=== PATIENT | male | born 1965 | race African-American/Black ===

== ENCOUNTER 2020-07-12 15:40 | Inpatient (IN) | payer OTHER ==
[2020-07-12 20:03] VITALS: BMI 28.7
[2020-07-12] MEDS ORDERED: IBUPROFEN 400 MG TABLET (FP) PO PRN (22:12)
[2020-07-12] MEDS ORDERED: P-EPHED 60MG/TRIPROLIDI 2.5MG TABLET PO PRN (22:12)
[2020-07-12] MEDS ORDERED: NICOTINE POLACRILEX 2 MG GUM BC PRN (22:12)
[2020-07-12] MEDS ORDERED: LOPERAMIDE HCL 2 MG CAPSULE PO PRN (22:12)
[2020-07-12] MEDS ORDERED: guaiFENesin 200 MG/10 ML 10 ML UNIT-DOSE CUPS PO PRN (22:12)
[2020-07-12] MEDS ORDERED: MAG HYDROX/AL HYDROX/SIMETH 30 ML UNIT-DOSE CUP PO PRN (22:12)
[2020-07-12] MEDS ORDERED: MAGNESIUM HYDROX 2400MG/30ML ORAL SUSPENSION 30 ML CUP PO PRN (22:12)
[2020-07-12] MEDS ORDERED: MAGNESIUM CITRATE 300 ML BOTTLE PO PRN (22:12)
[2020-07-13] MEDS: MELATONIN 5 MG TABLETS PO SCH ×2 (01:10→21:15)
[2020-07-13] MEDS ORDERED: TUBERCULIN PPD 5 TU/0.1ML VIAL ID ONE (01:38)
[2020-07-13] MEDS: PRENATAL VITAMINS W/ FOLIC ACID TABLET (FP) PO SCH (11:03)
[2020-07-13] MEDS: ACETAMINOPHEN 325 MG TABLET (FP) PO PRN (11:03)
[2020-07-13 11:33] LABS: ALBUMIN 3.2 g/dl (3.4-5.0); CALCIUM 8.7 mg/dL (8.5-10.1); HEMATOCRIT 37.7 % (35.4-49); HEMOGLOBIN 12.3 GM/dL (11.7-16.9); MCH 28.1 pg (25.7-33.7); MCHC 32.6 g/dl (32.0-35.9); MEAN CELL VOLUME 86.4 fl (80-96); PLATELET COUNT 295 K/MM3 (134-434); RBC 4.37 M/mm3 (4.00-5.60); RDW 15.1 % (11.9-15.9)
[2020-07-13 11:38] LABS: BILIRUBIN,TOTAL 0.9 mg/dL (0.2-1); CREATININE 1.1 mg/dL (0.55-1.3); TOT PROT 6.7 g/dl (6.4-8.2)
[2020-07-13 12:32] LABS: HIV INTERPRETATION NEGATIVE (NEGATIVE)
[2020-07-13] MEDS: hydrOXYzine PAMOATE 25 MG CAPSULE (FP) PO PRN (21:15)
[2020-07-13] MEDS: THIAMINE HCL 100 MG TABLET (FP) PO SCH (21:15)
[2020-07-13] MEDS: METHYL SALICYLATE/MENTHOL OINT 30 GM TUBE TP SCH (21:59)
[2020-07-14] MEDS: METHYL SALICYLATE/MENTHOL OINT 30 GM TUBE TP SCH ×2 (10:55→21:09)
[2020-07-14] MEDS: LIDOCAINE 5% TOPICAL PATCH TP SCH (10:55)
[2020-07-14] MEDS: PRENATAL VITAMINS W/ FOLIC ACID TABLET (FP) PO SCH (10:56)
[2020-07-14] MEDS: ACETAMINOPHEN 325 MG TABLET (FP) PO PRN (10:56)
[2020-07-14] MEDS: THIAMINE HCL 100 MG TABLET (FP) PO SCH (21:08)
[2020-07-14] MEDS: MELATONIN 5 MG TABLETS PO SCH (21:08)
[2020-07-14] MEDS: METHOCARBAMOL 500 MG TABLET PO PRN (21:08)
[2020-07-14] MEDS: hydrOXYzine PAMOATE 25 MG CAPSULE (FP) PO PRN (21:08)
[2020-07-14] MEDS: LIDOCAINE PATCH REMOVAL MC SCH (21:09)
[2020-07-15] MEDS: LIDOCAINE 5% TOPICAL PATCH TP SCH (10:51)
[2020-07-15] MEDS: PRENATAL VITAMINS W/ FOLIC ACID TABLET (FP) PO SCH (10:51)
[2020-07-15] MEDS: METHYL SALICYLATE/MENTHOL OINT 30 GM TUBE TP SCH ×2 (10:52→22:26)
[2020-07-15] MEDS: MELATONIN 5 MG TABLETS PO SCH (22:14)
[2020-07-15] MEDS: THIAMINE HCL 100 MG TABLET (FP) PO SCH (22:14)
[2020-07-15] MEDS: LIDOCAINE PATCH REMOVAL MC SCH (22:16)
[2020-07-16] MEDS: PRENATAL VITAMINS W/ FOLIC ACID TABLET (FP) PO SCH (10:44)
[2020-07-16] MEDS: METHYL SALICYLATE/MENTHOL OINT 30 GM TUBE TP SCH ×2 (10:45→22:11)
[2020-07-16] MEDS: LIDOCAINE 5% TOPICAL PATCH TP SCH (10:45)
[2020-07-16 17:49] LABS: PH,URINE 5.5 (5.0-8.0); URINE APPEARANCE CLEAR; URINE BILIRUBIN NEGATIVE (NEGATIVE); URINE COLOR YELLOW; URINE GLUCOSE (UA) NEGATIVE (NEGATIVE); URINE KETONE TRACE (NEGATIVE); URINE LEUK ESTERASE NEGATIVE (NEGATIVE); URINE NITRITE NEGATIVE (NEGATIVE); URINE PROTEIN NEGATIVE (NEGATIVE); URINE UROBILINOGEN 0.2 mg/dL (0.2-1.0)
[2020-07-16] MEDS: MELATONIN 5 MG TABLETS PO SCH (22:10)
[2020-07-16] MEDS: THIAMINE HCL 100 MG TABLET (FP) PO SCH (22:10)
[2020-07-16] MEDS: INSULIN SLIDING SCALE (NOVOLOG) 1 VIAL SQ SCH (22:11)
[2020-07-16] MEDS: LIDOCAINE PATCH REMOVAL MC SCH (22:11)
[2020-07-17] MEDS: INSULIN SLIDING SCALE (NOVOLOG) 1 VIAL SQ SCH ×4 (08:06→21:20)
[2020-07-17] MEDS ORDERED: INSULIN (NOVOLOG) ASPART 100 UNITS/ML 10ML VIAL ONE ×4 (08:23→21:19)
[2020-07-17] MEDS: METHYL SALICYLATE/MENTHOL OINT 30 GM TUBE TP SCH ×2 (10:51→21:16)
[2020-07-17] MEDS: LIDOCAINE 5% TOPICAL PATCH TP SCH (10:51)
[2020-07-17] MEDS: PRENATAL VITAMINS W/ FOLIC ACID TABLET (FP) PO SCH (10:51)
[2020-07-17] MEDS: LIDOCAINE PATCH REMOVAL MC SCH (21:16)
[2020-07-17] MEDS: MELATONIN 5 MG TABLETS PO SCH (21:16)
[2020-07-17] MEDS: THIAMINE HCL 100 MG TABLET (FP) PO SCH (21:16)
[2020-07-18] MEDS ORDERED: INSULIN (NOVOLOG) ASPART 100 UNITS/ML 10ML VIAL ONE ×2 (06:00→06:54)
[2020-07-18] MEDS: INSULIN SLIDING SCALE (NOVOLOG) 1 VIAL SQ SCH ×2 (06:28→12:05)
[2020-07-18] MEDS: LIDOCAINE 5% TOPICAL PATCH TP SCH (10:57)
[2020-07-18] MEDS: METHYL SALICYLATE/MENTHOL OINT 30 GM TUBE TP SCH ×2 (10:57→22:01)
[2020-07-18] MEDS: PRENATAL VITAMINS W/ FOLIC ACID TABLET (FP) PO SCH (10:57)
[2020-07-18] MEDS: LIDOCAINE PATCH REMOVAL MC SCH (22:00)
[2020-07-18] MEDS: THIAMINE HCL 100 MG TABLET (FP) PO SCH (22:00)
[2020-07-18] MEDS: MELATONIN 5 MG TABLETS PO SCH (22:00)
[2020-07-19] MEDS: METHYL SALICYLATE/MENTHOL OINT 30 GM TUBE TP SCH ×2 (10:47→22:02)
[2020-07-19] MEDS: LIDOCAINE 5% TOPICAL PATCH TP SCH (10:47)
[2020-07-19] MEDS: PRENATAL VITAMINS W/ FOLIC ACID TABLET (FP) PO SCH (10:47)
[2020-07-19] MEDS ORDERED: INSULIN (NOVOLOG) ASPART 100 UNITS/ML 10ML VIAL ONE (16:26)
[2020-07-19] MEDS: INSULIN SLIDING SCALE (NOVOLOG) 1 VIAL SQ SCH (16:26)
[2020-07-19] MEDS: LIDOCAINE PATCH REMOVAL MC SCH (22:01)
[2020-07-19] MEDS: THIAMINE HCL 100 MG TABLET (FP) PO SCH (22:01)
[2020-07-19] MEDS: MELATONIN 5 MG TABLETS PO SCH (22:01)
[2020-07-20] MEDS ORDERED: INSULIN (NOVOLOG) ASPART 100 UNITS/ML 10ML VIAL ONE ×2 (06:05→17:08)
[2020-07-20] MEDS: INSULIN SLIDING SCALE (NOVOLOG) 1 VIAL SQ SCH ×2 (06:06→17:14)
[2020-07-20] MEDS: METHYL SALICYLATE/MENTHOL OINT 30 GM TUBE TP SCH ×2 (10:40→21:52)
[2020-07-20] MEDS: LIDOCAINE 5% TOPICAL PATCH TP SCH (10:40)
[2020-07-20] MEDS: PRENATAL VITAMINS W/ FOLIC ACID TABLET (FP) PO SCH (10:40)
[2020-07-20] MEDS: MELATONIN 5 MG TABLETS PO SCH (21:52)
[2020-07-20] MEDS: LIDOCAINE PATCH REMOVAL MC SCH (21:52)
[2020-07-20] MEDS: THIAMINE HCL 100 MG TABLET (FP) PO SCH (21:52)
[2020-07-21] MEDS: INSULIN SLIDING SCALE (NOVOLOG) 1 VIAL SQ SCH ×2 (06:11→17:45)
[2020-07-21] MEDS: LIDOCAINE 5% TOPICAL PATCH TP SCH (10:43)
[2020-07-21] MEDS: METHYL SALICYLATE/MENTHOL OINT 30 GM TUBE TP SCH ×2 (10:43→21:23)
[2020-07-21] MEDS: PRENATAL VITAMINS W/ FOLIC ACID TABLET (FP) PO SCH (10:43)
[2020-07-21] MEDS ORDERED: INSULIN (NOVOLOG) ASPART 100 UNITS/ML 10ML VIAL ONE (17:44)
[2020-07-21] MEDS: LIDOCAINE PATCH REMOVAL MC SCH (21:23)
[2020-07-21] MEDS: THIAMINE HCL 100 MG TABLET (FP) PO SCH (21:23)
[2020-07-21] MEDS: MELATONIN 5 MG TABLETS PO SCH (21:24)
[2020-07-22] MEDS: INSULIN SLIDING SCALE (NOVOLOG) 1 VIAL SQ SCH ×2 (06:51→16:47)
[2020-07-22] MEDS: PRENATAL VITAMINS W/ FOLIC ACID TABLET (FP) PO SCH (10:50)
[2020-07-22] MEDS: METHYL SALICYLATE/MENTHOL OINT 30 GM TUBE TP SCH ×2 (10:51→21:16)
[2020-07-22] MEDS: LIDOCAINE 5% TOPICAL PATCH TP SCH (10:51)
[2020-07-22] MEDS: METHOCARBAMOL 500 MG TABLET PO PRN (21:15)
[2020-07-22] MEDS: THIAMINE HCL 100 MG TABLET (FP) PO SCH (21:15)
[2020-07-22] MEDS: hydrOXYzine PAMOATE 25 MG CAPSULE (FP) PO PRN (21:15)
[2020-07-22] MEDS: LIDOCAINE PATCH REMOVAL MC SCH (21:16)
[2020-07-22] MEDS: MELATONIN 5 MG TABLETS PO SCH (21:16)
[2020-07-23] MEDS: INSULIN SLIDING SCALE (NOVOLOG) 1 VIAL SQ SCH ×2 (06:32→16:44)
[2020-07-23] MEDS: METHYL SALICYLATE/MENTHOL OINT 30 GM TUBE TP SCH ×2 (10:55→21:40)
[2020-07-23] MEDS: PRENATAL VITAMINS W/ FOLIC ACID TABLET (FP) PO SCH (10:55)
[2020-07-23] MEDS: LIDOCAINE 5% TOPICAL PATCH TP SCH (10:55)
[2020-07-23] MEDS ORDERED: INSULIN (NOVOLOG) ASPART 100 UNITS/ML 10ML VIAL ONE (16:40)
[2020-07-23] MEDS: MELATONIN 5 MG TABLETS PO SCH (21:07)
[2020-07-23] MEDS: THIAMINE HCL 100 MG TABLET (FP) PO SCH (21:07)
[2020-07-23] MEDS: hydrOXYzine PAMOATE 25 MG CAPSULE (FP) PO PRN (21:08)
[2020-07-23] MEDS: METHOCARBAMOL 500 MG TABLET PO PRN (21:08)
[2020-07-23] MEDS: LIDOCAINE PATCH REMOVAL MC SCH (21:41)
[2020-07-24] MEDS ORDERED: INSULIN (NOVOLOG) ASPART 100 UNITS/ML 10ML VIAL ONE ×2 (06:47→16:42)
[2020-07-24] MEDS: INSULIN SLIDING SCALE (NOVOLOG) 1 VIAL SQ SCH ×2 (06:48→16:42)
[2020-07-24] MEDS: LIDOCAINE 5% TOPICAL PATCH TP SCH (10:19)
[2020-07-24] MEDS: METHYL SALICYLATE/MENTHOL OINT 30 GM TUBE TP SCH ×2 (10:19→21:37)
[2020-07-24] MEDS: PRENATAL VITAMINS W/ FOLIC ACID TABLET (FP) PO SCH (10:19)
[2020-07-24] MEDS ORDERED: PT OWN MED DRAWER 7, Y5N ONE (10:58)
[2020-07-24] MEDS: MELATONIN 5 MG TABLETS PO SCH (21:37)
[2020-07-24] MEDS: THIAMINE HCL 100 MG TABLET (FP) PO SCH (21:37)
[2020-07-24] MEDS: LIDOCAINE PATCH REMOVAL MC SCH (21:38)
[2020-07-25] MEDS ORDERED: INSULIN (NOVOLOG) ASPART 100 UNITS/ML 10ML VIAL ONE ×2 (06:32→16:38)
[2020-07-25] MEDS: INSULIN SLIDING SCALE (NOVOLOG) 1 VIAL SQ SCH ×2 (06:33→16:39)
[2020-07-25] MEDS: LIDOCAINE 5% TOPICAL PATCH TP SCH (10:30)
[2020-07-25] MEDS: PRENATAL VITAMINS W/ FOLIC ACID TABLET (FP) PO SCH (10:30)
[2020-07-25] MEDS: METHYL SALICYLATE/MENTHOL OINT 30 GM TUBE TP SCH ×2 (10:30→21:51)
[2020-07-25] MEDS: MELATONIN 5 MG TABLETS PO SCH (21:51)
[2020-07-25] MEDS: THIAMINE HCL 100 MG TABLET (FP) PO SCH (21:51)
[2020-07-25] MEDS: LIDOCAINE PATCH REMOVAL MC SCH (21:51)
[2020-07-26] MEDS: INSULIN SLIDING SCALE (NOVOLOG) 1 VIAL SQ SCH ×2 (06:17→16:45)
[2020-07-26] MEDS ORDERED: INSULIN (NOVOLOG) ASPART 100 UNITS/ML 10ML VIAL ONE ×2 (06:18→16:39)
[2020-07-26] MEDS: PRENATAL VITAMINS W/ FOLIC ACID TABLET (FP) PO SCH (10:26)
[2020-07-26] MEDS: METHYL SALICYLATE/MENTHOL OINT 30 GM TUBE TP SCH ×2 (10:26→21:17)
[2020-07-26] MEDS: LIDOCAINE 5% TOPICAL PATCH TP SCH (10:26)
[2020-07-26] MEDS: MINERAL OIL/PETROLAT/WATER TOPICAL CREAM 113 GM JAR TP SCH (20:06)
[2020-07-26] MEDS: MELATONIN 5 MG TABLETS PO SCH (21:17)
[2020-07-26] MEDS: LIDOCAINE PATCH REMOVAL MC SCH (21:17)
[2020-07-26] MEDS: THIAMINE HCL 100 MG TABLET (FP) PO SCH (21:17)
[2020-07-26] MEDS: hydrOXYzine PAMOATE 25 MG CAPSULE (FP) PO PRN (21:17)
[2020-07-26] MEDS: METHOCARBAMOL 500 MG TABLET PO PRN (21:17)
[2020-07-27] MEDS ORDERED: INSULIN (NOVOLOG) ASPART 100 UNITS/ML 10ML VIAL ONE (06:14)
[2020-07-27] MEDS: INSULIN SLIDING SCALE (NOVOLOG) 1 VIAL SQ SCH (06:15)
[2020-07-27 07:27] VITALS: BP 129/83; PULSE 71; TEMP 97.3
[2020-07-27] MEDS: PRENATAL VITAMINS W/ FOLIC ACID TABLET (FP) PO SCH (09:16)
[2020-07-27] MEDS: LIDOCAINE 5% TOPICAL PATCH TP SCH (09:17)
[2020-07-27] MEDS: MINERAL OIL/PETROLAT/WATER TOPICAL CREAM 113 GM JAR TP SCH (09:17)
[2020-07-27] MEDS: METHYL SALICYLATE/MENTHOL OINT 30 GM TUBE TP SCH (09:17)
== END 2020-07-27 09:35 | disposition home or self-care (01) | DRG 772 ==
LOC: YASAS 15:40 → Y5N 07-13 00:32
PROVIDERS: ADMIT Allergy & Immunology; ATTEND Allergy & Immunology
PROC: HZ42ZZZ Group Counseling for Substance Abuse Treatment, Cognitive-Behavioral (ICD-10-PCS; principal; 2020-07-13)
DX: F10.20 Alcohol dependence, uncomplicated (principal); F11.20 Opioid dependence, uncomplicated; F14.20 Cocaine dependence, uncomplicated; F17.210 Nicotine dependence, cigarettes, uncomplicated; E11.9 Type 2 diabetes mellitus without complications; Z79.4 Long term (current) use of insulin; M21.612 Bunion of left foot; M21.611 Bunion of right foot; R76.11 Nonspecific reaction to tuberculin skin test without active tuberculosis; M25.551 Pain in right hip; R26.89 Other abnormalities of gait and mobility; Z91.81 History of falling; Z99.89 Dependence on other enabling machines and devices; Z86.59 Personal history of other mental and behavioral disorders; Z87.09 Personal history of other diseases of the respiratory system
CPT/HCPCS: 36415; 71046-TC-FY; 73502-TC-RT-FY; 80053; 81003; 82962; 85027; 86780; 87389; C9803; U0003; U0005